=== PATIENT | female | born 1965 | race Caucasian/White ===

== ENCOUNTER 2025-03-11 08:15 | Emergency (ER) | payer MEDICAID, OTHER ==
[~2025-03-11] VITALS: Ht 160 cm; Wt 63.0 kg
[~2025-03-11 08:15] MED LIST: ASPI-1497 PO; DAPA10TA PO; FLUO20TA29 MT; LIP40 PO; LOSA25TA26 MT; SITA1TAB6 PO
[2025-03-11 08:23] VITALS: O2SAT 100
[2025-03-11] MEDS: CYCLOBENZAPRINE 10MG TABLET PO ONE (09:14)
[2025-03-11] MEDS: LIDOCAINE 5% PATCH TOP SCH (09:14)
[2025-03-11] MEDS: KETOROLAC 30MG/ML VIAL IM ONE (09:14)
[2025-03-11] MEDS: ACETAMINOPHEN 325MG TABLET PO ONE (09:15)
[2025-03-11] MEDS ORDERED: NAPR-1129 MT (10:57)
[2025-03-11] MEDS ORDERED: LIDO-53 TP (10:57)
[2025-03-11] MEDS ORDERED: ACET-2708 MT (10:57)
[2025-03-11 11:13] VITALS: BP 95/54; PULSE 71; RESP 16; TEMP 36.4; O2SAT 98
== END 2025-03-11 11:16 | disposition home or self-care (01) ==
LOC: ER 08:15
DX: M54.50 Low back pain, unspecified (principal); M51.372 Other intervertebral disc degeneration, lumbosacral region with discogenic back pain and lower extremity pain; E11.9 Type 2 diabetes mellitus without complications; I10 Essential (primary) hypertension; Z79.899 Other long term (current) drug therapy
CPT/HCPCS: 99284; 96372; J1885